=== PATIENT | female | born 1965 | race Caucasian/White ===

== ENCOUNTER → 2023-10-15 10:34 | Outpatient (REF) | payer MEDICARE, SELFPAY | LOC: HWRAD 10:34 | PROVIDERS: ATTENDING PHYSICIAN Specialist; FAMILY PHYSICIAN Student in an Organized Health Care Education/Training Program | DX: C67.9 Malignant neoplasm of bladder, unspecified (principal) | CPT/HCPCS: 74177; Q9967 ==

== ENCOUNTER 2024-02-06 17:08 | Emergency (ER) | payer MEDICARE, SELFPAY ==
[2024-02-06 17:09] VITALS: BP 155/91
[2024-02-06 17:48] VITALS: BMI 20.9
[2024-02-06 19:43] LABS: % Basophils 0.6 % (0-2); % Eosinophils 1.1 % (0-6); % Immature Granulocytes 0.2 % (0-0.5); % Lymphocytes 24.5 % (20.5-51.1); % Neutrophils 62.6 % (42.2-75.2); Absolute Basophils 0.1 10^3/uL (0-0.2); Absolute Eosinophils 0.1 10^3/uL (0-0.7); Absolute Lymphocytes 2.1 10^3/uL (1.2-3.4); Absolute Neutrophils 5.5 10^3/uL (1.4-6.5); Hematocrit 40.2 % (37.0-47.0); Hemoglobin 13.7 g/dL (12.0-16.0); Mean Corp Hgb Conc. 34.1 g/dL (33.0-37.0); Mean Corpuscular Hgb 29.6 pg (27.0-31.0); Mean Corpuscular Volume 86.8 fL (81.0-99.0); Mean Platelet Volume 9.6 fL (7.4-10.4); Nucleated Red Blood Cells % 0 %; Platelet Count 323 10^3/uL (130-400); Red Blood Cell Count 4.63 10^6/uL (4.20-5.40); Red Cell Dist. Width 13.7 % (11.5-14.5); White Blood Cell Count 8.7 10^3/uL (4.8-10.8)
[2024-02-06 20:00] LABS: ALT (SGPT) 18 U/L (0-35); AST (SGOT) 26 U/L (14-36); Albumin 4.1 g/dl (3.5-5.0); Alkaline Phosphatase 112 U/L (38-126); Blood Urea Nitrogen 15 mg/dl (7-17); Calcium 9.5 mg/dl (8.4-10.2); Carbon Dioxide 29 mmol/L (22-30); Chloride 106 mmol/L (98-107); Estimated Creatinine Clearance 72 ml/min; Glucose 103 mg/dl (70-99); Potassium 3.7 mmol/L (3.5-5.1); Sodium 143 mmol/L (135-145); Total Bilirubin 0.3 mg/dl (0.2-1.3); Total Protein 5.9 g/dl (6.3-8.2); eGFR > 60.00
--- NOTE | 2024-02-06 23:22 | ED.GENMED ---
History of Present Illness
General
Chief Complaint: Abdominal Pain
Source: patient and family
Exam Limitations: none
Time Seen by Provider: 02/06/24 17:42
Nursing documentation reviewed up to this point in time: agreed with
History of Present Illness
History of Present Illness:
Patient to ED with complaint of constipation and rectal pain. Reports this has been ongoing but seems to be worsening. Brought to ED by father for eval.
Past History
Past History
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
ED Past Surgical History: Gynecological (hysterectomy, oophorectomy)
Social History
Tobacco: Former smoker
Alcohol: None
Personal:
Living: with family
Employment: Disabled
Family History
Family History: Other (reviewed and noncontributory)
Review of Systems
Review of Systems
Allergies reviewed?: Yes
All Other Systems: ROS reviewed and negative except as documented in HPI and ROS
Constitutional: Reports no symptoms
EENT: Reports no symptoms
Respiratory: Reports no symptoms
Cardiac: Reports no symptoms
ABD/GI: Reports constipated and other (Rectal pain)
: Reports no symptoms
Musculoskeletal: Reports no symptoms
Skin: Reports no symptoms
Neurological: Reports no symptoms
Psychiatric: Reports no symptoms
Phy Exam
General Physical Exam
General Presentation: well appearing and no apparent distress
General age: appears stated age
General Skin: warm and dry
General Habitus: normal
General Mental: alert
Gastrointestinal Exam
Gastrointestinal Exam: normal bowel sounds, non tender, soft, no organomegaly, no pulsatile mass, non distended and no cva tenderness
Palpation: generalized: No tenderness
Rectal Exam: normal external exam, normal sphincter tone, no rectal mass and no stool
Musculoskeletal Exam
Musculoskeletal Exam: full ROM and neuro vasc intact
Skin Exam
Skin Exam: normal color, warm/dry and no rash
Psychiatric Exam
Psychiatric Exam: normal mood/affect
Course
Orders/Labs/Results
Orders:
Orders
02/06/24 17:59
Obstruct Series W/PA Chest [CR Obstruct Series W/pa Chest] Urgent
Comment:
Reason For Exam: pain
02/06/24 19:33
Complete Blood Count/With Diff Urgent
Comprehensive Metabolic Panel Urgent
Abnormal Lab Results
02/06/24
19:33
Absolute Monos (auto) 1.0 H 10^3/uL
(0.1-0.6)
Monocytes % 11.0 H %
(1.7-9.3)
Glucose 103 H mg/dl
(70-99)
Total Protein 5.9 L g/dl
(6.3-8.2)
02/06/24 19:33
02/06/24 19:33
Vital Signs
Initial and Last Documented VS:
Initial Vital Signs
Temp Pulse Resp BP Pulse Ox
98.9 F 105 18 155/91 96
02/06/24 17:09 02/06/24 17:09 02/06/24 17:09 02/06/24 17:09 02/06/24 17:09
Last Documented Vital Signs
Temp Pulse Resp BP Pulse Ox
98.9 F 105 18 155/91 96
02/06/24 17:09 02/06/24 17:09 02/06/24 17:09 02/06/24 17:09 02/06/24 17:09
*Critical Care Note
Total Time (30-74mins, 75-104mins- exclusive of procedures): Not Applicable
Update Note
Update Note:
Patient to ED wtih complaint of constipaion. Has sensation of need to pass stool but wth little results. States she tries to self disimpact without success. Obstructions series and CT results reviewed. Moderate amt of stool throught but no
obstructoin. No stool in rectum noted on exam. Recommend Miralax daily. Colonoscopy report from 2 years ago reviewed. Rectal prolapse was noted at that time with recommendation for colorectal follow up . Discussed this with alfredo. She was
given the number for colorectal and will schedule an appointment.
ED Attending Note
-
Portions of this chart may have been created with voice recognition software.� Occasional wrong word or��sound alike� substitutions may have occurred due to the inherent limitations of voice recognition software.
Discharge Plan
Departure
Patient Disposition: Home (Routine Discharge)
Date of Disposition: 02/06/24
Time of Disposition: 20:16
Patient with high blood pressure during this ER visit?: No
Condition: Good
Discharge Problem:
Constipation
Instructions: Rectal prolapse in adults, Constipation, Adult (DC)
Prescriptions:
New
polyethylene glycol 3350 [Miralax] 17 gram/dose powder
4 g PO DAILY Qty: 238 0RF
No Action
ascorbic acid (vitamin C) [Vitamin C] 1,000 MG tablet
2,000 mg PO DAILY
tizanidine 4 MG tablet
8 mg PO HS
venlafaxine 150 MG capsule,extended release 24hr
75 mg PO BID
folic acid 1 MG tablet
1 mg PO DAILY
tizanidine 4 MG capsule
4 mg PO BID
Patient Comments:
BID 0800, 1300
cholecalciferol (vitamin D3) 2,000 UNIT tablet
2,000 unit PO DAILY
dalfampridine 10 MG tablet extended release 12 hr
10 mg PO BID
wabveqgw-nrk-kzik-FA-vit K-lut [Centrum Silver Women] 1 EACH tablet
1 ea PO DAILY
gabapentin 300 MG capsule
600 mg PO HS
omeprazole 40 MG capsule,delayed release(DR/EC)
40 mg PO DAILY Qty: 30 5RF
tramadol 50 MG tablet
50 mg PO Q8 PRN (Reason: pain) Qty: 25 0RF
nitrofurantoin monohyd/m-cryst 100 MG capsule
100 mg PO HS Qty: 14 0RF
metoprolol tartrate 12.5 MG tablet
12.5 mg PO BID Qty: 60 3RF
fluconazole 200 MG tablet
200 mg PO ONCE 1 Days Qty: 1 0RF
Rx Instructions:
take as directed by dr shane
Referrals:
Dale Wilson MD [Active] - Call in 1-3 days for appt
UNKNOWN - PT DOES,NOT KNOW [Family Provider] -
Interventions
Interventions:
*Risk Screen - Suicide Last Done: 02/06/24 17:52
*General Assessment Last Done: 02/06/24 17:52
*Neglect/Abuse Screening Last Done: 02/06/24 17:52
ED- Fall Risk Assessment Last Done: 02/06/24 17:49
*ED COVID-19 Vaccine History Last Done: 02/06/24 17:49
*Nursing Disposition Last Done: 02/06/24 20:33
TK-Rdbgra-Xruklgtxry Assessment Last Done: 02/06/24 17:49
Discharge Date and Time
Discharge Date/Time: 02/06/24 20:33
Print Language: [id number]
== END 2024-02-06 20:33 | disposition home or self-care (01) ==
LOC: EMR 17:08
PROVIDERS: Nurse Practitioner; EMERGENCY PHYSICIAN Emergency Medicine
DX: K59.00 Constipation, unspecified (principal); Z87.891 Personal history of nicotine dependence
CPT/HCPCS: 99284; 74022; 80053; 85025

== ENCOUNTER → 2024-10-18 13:15 | Outpatient (REF) | payer MEDICARE, MEDICAID, SELFPAY | LOC: HWRAD 13:15 | PROVIDERS: ATTENDING PHYSICIAN Specialist; FAMILY PHYSICIAN Emergency Medicine | DX: C67.9 Malignant neoplasm of bladder, unspecified (principal) | CPT/HCPCS: 74176 ==